=== PATIENT | male | born 1955 | race African-American/Black ===

== ENCOUNTER 2025-03-20 10:01 | Outpatient (OUT) | payer MEDICARE, SELFPAY ==
--- NOTE | 2025-03-20 10:05 | ECG_ITS ---
[facility] Test Date: 2025-03-20 Pat Name: YADIEL MCMANUS Department: Room: - Gender: Male [employer]inder: : 1955 Requested By: ESTHELA FRIEND Order Number: [id number] Emmanuel MD: BRAXTON ARIAS M.D. Measurements Intervals [place] Rate: 54 P: 60 SC: 176 QRS: 56 QRSD: 97 T: 56 QT: 426 QTc: 407 Interpretive Statements SINUS BRADYCARDIA Borderline ECG Compared to ECG 12/05/2022 10:33:56 Sinus rhythm no longer present Electronically Signed On 03-20-2025 18:25:03 EDT by BRAXTON ARIAS M.D.
--- NOTE | 2025-03-20 10:06 | XR_ITS ---
[address] [address] Patient Name: YADIEL MCMANUS MRN: [id number] date: 1955 Sex: M Assigned Patient Location: [facility] Current Patient Location: [facility] Accession/Order Number: [id number] Exam Date: 03/20/2025 11:09 Report Date: 03/20/2025 11:09 At the request of: ESTHELA FRIEND MD Procedure: XR chest 2V Chest 2 views CLINICAL HISTORY: Preop exam COMPARISON: Chest 12/05/2022 FINDINGS: Heart appears normal in size. No consolidation pneumothorax pleural effusion or free air. XR/XR chest 2V IMPRESSION: NO ACUTE CARDIOPULMONARY ABNORMALITY. Impression dictated by: Luis Owens Jr., D.OFran 03/20/2025 11:09 AM Dictation Location: [place] [address] Electronically authenticated by: [id number] Y Date: 03/20/2025 11:09
--- NOTE | 2025-03-20 10:48 | PM.PRESUREVA ---
History of Present Illness History of Present Illness Chief complaint: BPH with Luts Narrative: Patient presents for presurgical testing. The patient reports he was diagnosed with prostatitis after a UTI and hematuria. He also has an elevated PSA. He recently had a cystoscopy and states he is now scheduled for a procedure for his enlarged prostate. He denies urinary complaints at this time. Review of Systems ROS Narrative REVIEW OF SYSTEMS: Negative except as stated in HPI, ten or more systems reviewed. Constitutional: No fever, chills, weakness ENT: No sore throat or epistaxis Cardiovascular: No edema, chest pain, palpitations, or activity intolerance Respiratory: No cough Musculoskeletal: No joint pain or swelling Gastrointestinal: No abdominal pain, constipation, diarrhea, or vomiting Genitourinary: No dysuria or hematuria Neurological: No numbness, tingling, weakness, or headache Psychiatric: No mood changes PFSH [facility] Medical History (Updated 03/20/25 @ 10:42 by Lynda Harris NP) Urethral stricture ?N35.919 - Unspecified urethral stricture, male, unspecified site (ICD-10) Renal cyst ?N28.1 - Cyst of kidney, acquired (ICD-10) Prostatitis ?N41.9 - Inflammatory disease of prostate, unspecified (ICD-10) Pneumonia (2022) ?J18.9 - Pneumonia, unspecified organism (ICD-10) Kidney stones ?N20.0 - Calculus of kidney (ICD-10) Hypercholesterolemia ?E78.00 - Pure hypercholesterolemia, unspecified (ICD-10) Gross hematuria ?R31.0 - Gross hematuria (ICD-10) Elevated PSA ?R97.20 - Elevated prostate specific antigen [PSA] (ICD-10) Depression ?F32.A - Depression, unspecified (ICD-10) COPD (chronic obstructive pulmonary disease) ?J44.9 - Chronic obstructive pulmonary disease, unspecified (ICD-10) Bladder stone ?N21.0 - Calculus in bladder (ICD-10) Anxiety ?F41.9 - Anxiety disorder, unspecified (ICD-10) BPH with obstruction/lower urinary tract symptoms ?N40.1 - Benign prostatic hyperplasia with lower urinary tract symptoms (ICD-10) ?N13.8 - Other obstructive and reflux uropathy (ICD-10) Surgical History (Updated 03/20/25 @ 10:29 by Lynda Harris NP) History of colonoscopy ?Z98.890 - Other specified postprocedural states (ICD-10) H/O hand surgery ?Z98.890 - Other specified postprocedural states (ICD-10) H/O lithotripsy ?Z98.890 - Other specified postprocedural states (ICD-10) H/O prostate biopsy ?Z98.890 - Other specified postprocedural states (ICD-10) H/O cystoscopy ?Z98.890 - Other specified postprocedural states (ICD-10) Family History (Updated 03/20/25 @ 10:14 by Lynda Harris NP) Other Family history of diabetes mellitus Family history of hypertension Family history of stroke Heart disease Social History (Updated 03/20/25 @ 10:24 by Lydna Harris NP) Within the past year, how often did you have a drink containing alcohol: never Score interpretation: A score less than 4 is consistent with normal alcohol consumption. Smoking status: Former smoker Non-prescribed substance use: denies use Previous occupational history: Disabled Highest level of school completed/degree received: high school graduate Meds Home Medications and Allergies Home Medications ?Medication ?Instructions ?Recorded ?Confirmed ?Type albuterol sulfate 90 mcg/actuation 2 inh inhalation Q4H PRN shortness 03/20/25 03/20/25 History aerosol inhaler of breath or wheezing aspirin 81 mg tablet,delayed 81 mg PO DAILY 03/20/25 03/20/25 History release (Adult Aspirin Regimen) atorvastatin 40 mg tablet 40 mg PO DAILY 03/20/25 03/20/25 History cholecalciferol (vitamin D3) 125 125 mcg PO DAILY 03/20/25 03/20/25 History mcg (5,000 unit) capsule cyanocobalamin (vitamin B-12) 1,000 mcg IM .monthly 03/20/25 03/20/25 History 1,000 mcg/mL injection kit ferrous sulfate 325 mg (65 mg 325 mg PO .3 times a week 03/20/25 03/20/25 History iron) tablet fluticasone fur. 100 mcg-umeclid 1 inh inhalation Q24H 03/20/25 03/20/25 History 62.5 mcg-vilant 25 mcg inhalat.powder (Trelegy Ellipta) ibuprofen 800 mg tablet 800 mg PO Q8H PRN pain 03/20/25 03/20/25 History multivitamin (Daily Multi-Vitamin 1 tab PO DAILY 03/20/25 03/20/25 History tablet) sildenafil 100 mg tablet 100 mg PO DAILY 03/20/25 03/20/25 History tamsulosin 0.4 mg capsule 0.4 mg PO BID 03/20/25 03/20/25 History Allergies Allergy/AdvReac Type Severity Reaction Status Date / Time No Known Drug Allergies Allergy Verified 03/20/25 10:16 Exam Narrative Exam Narrative: Constitutional: Awake, alert, comfortable, well-appearing, nontoxic, interactive, vital signs as charted Head: Normocephalic, atraumatic Neck: Supple, normal appearance, normal range of motion, no meningeal signs, no lymphadenopathy Respiratory: No respiratory distress, breath sounds clear Cardiovascular: Regular rate and rhythm, strong and regular heart tones Abdomen: Nontender, normal bowel sounds, soft, no CVA tenderness Musculoskeletal: Normal gait, no swelling or edema Skin: No rashes or induration, no lesions, only visible skin inspected Neuro: No neurological deficits, normal sensation Psychiatric: Oriented ?3, normal affect Assessment and Plan Assessment and Plan (1) BPH with obstruction/lower urinary tract symptoms: Plan Cystoscopy/TURP scheduled with Dr. Amado March 30, 2025.
[2025-03-20 11:02] LABS: Anion Gap 6.5; Blood Urea Nitrogen 18.0 mg/dL (7.0-18.0); Calcium 9.6 mg/dL (8.5-10.1); Carbon Dioxide 31.6 mmol/L (21.0-32.0); Chloride 106 mmol/L (98-107); Estimated GFR (African America >60 (>=60 mL/min/1.73m^2); Estimated GFR (Non-African Ame >60 (>=60 mL/min/1.73m^2); Glucose 93 mg/dL (74-106); Potassium 4.1 mmol/L (3.5-5.1); Sodium 140 mmol/L (136-145)
[2025-03-20 11:04] LABS: Hematocrit 44.0 % (42.0-54.0); Hemoglobin 14.6 g/dL (14.0-18.0); Immature Granulocytes Abs Auto 0.02 10^3/uL (0.00-0.03); Immature Granulocytes Pct Auto 0.5 % (0.0-0.5); Lymphocytes Absolute Auto 1.1 10^3/uL (1.2-3.8); Mean Corpuscular HGB Conc 33.2 g/dL (29.9-35.2); Mean Corpuscular Hemoglobin 30.7 pg (25.9-34.0); Mean Corpuscular Volume 92.4 fL (80.0-94.0); Platelet Count 137 10^3/uL (150-450); Red Blood Count 4.76 10^6/uL (4.70-6.10); White Blood Count 4.0 10^3/uL (4.0-11.0)
[2025-03-20 11:07] LABS: INR 1.00; Partial Thromboplastin Time 28.7 sec (22.3-36.2); Prothrombin Time 10.6 sec (9.0-11.6)
== END 2025-03-20 10:02 | disposition home or self-care (01) ==
LOC: PST 10:04
PROVIDERS: Visit Provider Urology
DX: Z01.810 Encounter for preprocedural cardiovascular examination (principal); Z01.812 Encounter for preprocedural laboratory examination; Z01.818 Encounter for other preprocedural examination; N40.1 Benign prostatic hyperplasia with lower urinary tract symptoms
CPT/HCPCS: 71046; 80048; 85025; 85610; 85730; 93005; G0463

== ENCOUNTER 2025-03-30 10:59 | Day surgery (SDC) | payer MEDICARE, SELFPAY ==
[2025-03-20 10:44] VITALS: BP 107/74; PULSE 55; TEMP 36.4; O2SAT 99; BMI 25.5
[2025-03-30] VITALS (14 sets, daily range): BP systolic 91–118; BP diastolic 53–80; PULSE 53–78; TEMP 36.1–36.4; O2SAT 92–98; BMI 25.5
[2025-03-30] MEDS: LEVOFLOXACIN 500 MG/100 ML-D5W PREMIX 100 MG IV (13:18)
--- NOTE | 2025-03-30 14:52 | P.URON_ITS ---
Urology Surgery Operative Note Operative Note Procedure Date: 03/30/25 Time Out Performed: yes Pre-op Diagnosis: BPH with LUTS refractory to medications and chronic prostatitis Post-op Diagnosis: same as pre-op Procedures performed: 1. Cystoscopy. 2. Transurethral resection of the prostate. Anesthesia: TRISTENA Primary Surgeon: James Amado Complications: None Estimated blood loss (mL): 15 Findings: 1.. Extremely high median lobe coapting the anterior lobe. 2. Purulence pockets within the median lobe. Specimens: Prostate chips Drains: 22 [place] three-way coud? Masters catheter in the bladder taped to traction and CBI Indications for Procedures: This gentleman has BPH with LUTS that is refractory to his medications such as Flomax. He has been getting recurrent prostate infections and gross hematuria. He had recent surgery for bladder stones just a couple years ago. He is desirous for TURP. He has signed an informed consent after risks were explained to him in great detail. Some of these risks include bleeding, infection, anesthesia, urinary incontinence both temporary and permanent, retrograde ejaculation, erectile dysfunction, possible need for further operations just to name a few Detailed description of Procedure: The patient was brought to the operating room and placed on the operating room table in the supine position. SCDs were placed on the lower extremities and turned on and functioning during the entire case. Timeout was done by all parties in the room. We all agreed upon the patient's identification and the planned procedures for this patient. Genn. anesthesia was then administered. The patient was then repositioned into the modified dorsal lithotomy position. All pressure points were satisfactorily padded. Genitalia were sterilely prepped and draped in usual fashion. I started by passing a 26 [place] Olympus resectoscope with a standard bipolar loop electrode per urethra and as I arrived at the Veru I could see that his median lobe was enormous and it protruded anteriorly and coapted with the anterior tissue. I identified the orifices and marked them with a loop electrode. I then uniformly resected this large capacious median lobe down to the bladder neck level. Purulence pockets were unroofed during this resection of the median lobe. Once I got the median lobe totally resected he was already 80% open. I then resected posteriorly to the Veru. The left lateral lobe although short had some capacious tissue. I similarly resected this from the bladder neck to the apex level. The apex was then opened up carefully. I did use the vaporization electrode to maintain hemostasis and to do some resecting. The Ilich evacuator was used to get all the prostate chips out of the bladder and these were sent for permanent sections. Upon completion, while sitting at the apex the prostatic urethra and bladder neck were now wide open. There was no bleeding. The scope was then removed. I then placed a 22 [place] three-way coud? Masters in the bladder. It was manually irrigated with a Saranya to verify accurate location and placement. I then placed 30 cc of fluid in the balloon. It was taped to traction and CBI was started. It irrigated to a clear color. The anesthetic was then reversed. He was then transferred to a rmountain view bed and wheeled to PACU in stable condition. Urinary Catheter Management Urinary Catheter Management 3-way Urethral: Cath placed during this visit: no
[2025-03-30] MEDS: SOLIFENACIN SUCCINATE 10 MG TABLET PO (15:02)
[2025-03-30] MEDS: 0.9 % SODIUM CHLORIDE 1,000 ML 80 ML IV (15:51)
[2025-03-30] MEDS: SODIUM CHLORIDE IRRIG SOLUTION 3,000 ML 3000 ML IRR ×10 (15:51→23:26)
[2025-03-31] VITALS: BP 109/62; PULSE 55; TEMP 36.6; O2SAT 94
[2025-03-31] MEDS: SODIUM CHLORIDE IRRIG SOLUTION 3,000 ML 3000 ML IRR ×4 (00:18→03:50)
[2025-03-31] MEDS: CEFAZOLIN SODIUM/DEXTROSE,ISO 1 GM/50 ML PREMIX IV ×2 (00:19→06:09)
[2025-03-31 04:00] VITALS: BP 100/63; PULSE 60; TEMP 36.6; O2SAT 95
[2025-03-31] MEDS: ATORVASTATIN CALCIUM 40 MG TABLET PO (08:34)
[2025-03-31] MEDS: SOLIFENACIN SUCCINATE 10 MG TABLET PO (08:34)
[2025-03-31] MEDS: CHOLECALCIFEROL (VITAMIN D3) 125 MCG/5,000 UNIT TABLET PO (08:34)
[2025-03-31 08:35] VITALS: BP 120/76; PULSE 68; TEMP 36.7; O2SAT 95
== END 2025-03-31 09:06 | disposition home or self-care (01) ==
LOC: SURGOUT 14:49 → MS 15:41
PROVIDERS: Visit Provider Urology
PROC: (CPT 52601; principal; 2025-03-30 12:00)
DX: N40.1 Benign prostatic hyperplasia with lower urinary tract symptoms (principal); F41.9 Anxiety disorder, unspecified; F32.A Depression, unspecified; E78.00 Pure hypercholesterolemia, unspecified; Z87.442 Personal history of urinary calculi; I10 Essential (primary) hypertension; J44.9 Chronic obstructive pulmonary disease, unspecified; I25.10 Atherosclerotic heart disease of native coronary artery without angina pectoris; N41.1 Chronic prostatitis; Z87.891 Personal history of nicotine dependence; G47.33 Obstructive sleep apnea (adult) (pediatric)
CPT/HCPCS: 52601; 36415; 88305; 96365; 96366; J0131; J0690; J1100; J1171; J2250; J2371; J2405; J2704; J3010